=== PATIENT | male | born 1980 | race African-American/Black ===

== ENCOUNTER 2018-09-16 06:40 | Emergency (ER) | payer OTHER ==
[~2018-09-16] VITALS: Ht 180.3 cm; Wt 106.6 kg
[2018-09-16] MEDS ORDERED: IV NORMAL SALINE 1000ML BAG 1,000 ML IV SCH (06:54)
--- NOTE | 2018-09-16 06:58 | PHYS DOC ---
Past Medical History Past Medical History: Diabetes-Type II, Hypotension Smoking: Cigarettes (The patient is a nonsmoker.) Alcohol Use: None Drug Use: None Adult General HPI HPI Patient is a pleasant 38-year-old male who presents to the emergency department for evaluation. He lives in [place], and is a truck driver flatbed, and states about 40 minutes prior to arrival he developed the sudden onset of severe left flank pain, with radiation around towards his anterior left lower abdomen. He has not had any nausea or vomiting. Denies any genital pain or radiation of the pain towards his groin. He has not had any hematuria or dysuria, has not had any fevers or chills. He denies any chest pain or shortness of breath. Has not had any similar symptoms in the past. He states that his pain is described as a sharp achy pain, which will come in paroxysms. There are no alleviating or exacerbating factors to his symptoms. He was given 100 g of fentanyl by EMS without significant relief. Review of Systems Review of Systems Constitutional: Denies fever or chills [] Eyes: Denies change in visual acuity, redness, or eye pain [] HENT: Denies nasal congestion or sore throat [] Respiratory: Denies cough or shortness of breath [] Cardiovascular: The patient denies any shortness of breath, chest pain, palpitations, or orthopnea [] GI: No additional information not addressed in HPI [] : Denies dysuria or hematuria, no genital pain [] Musculoskeletal: Denies back pain or joint pain [] Integument: Denies rash or skin lesions [] Neurologic: Denies headache, focal weakness or sensory changes [] Endocrine: Denies polyuria or polydipsia [] All other systems were reviewed and found to be within normal limits, except as documented in this note. Current Medications Current Medications Current Medications Medications (Trade) Dose Ordered Sig/Lobo Start Time Stop Time Status Last Admin Dose Admin Ketorolac Tromethamine (Toradol 30mg Vial) 30 mg 1X ONCE 09/16/18 07:00 09/16/18 07:02 DC 09/16/18 07:10 30 MG Morphine Sulfate (Morphine Sulfate) 4 mg PRN Q15MIN PRN 09/16/18 07:00 09/17/18 06:59 09/16/18 08:22 4 MG Ondansetron HCl (Zofran) 4 mg 1X ONCE 09/16/18 07:00 09/16/18 07:02 DC 09/16/18 07:10 4 MG Sodium Chloride 1,000 ml @ 1,000 mls/hr Q1H 09/16/18 06:54 09/16/18 07:53 DC 09/16/18 07:09 1,000 MLS/HR Allergies Allergies Allergies Coded Allergies Type Severity Reaction Last Updated Verified No Known Drug Allergies 09/16/18 No Physical Exam Physical Exam PHYSICAL EXAM: CONSTITUTIONAL: Well developed, well nourished HEAD: normocephalic, atraumatic EENT: PERRL, EOMI. Conjunctivae normal color, sclerae non-icteric; moist mucous membranes. NECK: Supple, non-tender; no meningismus. LUNGS: Lungs CTA, breathing even and unlabored. Normal air movement. HEART: Regular rate and rhythm, no murmur CHEST: No deformity; non-tender ABDOMEN: The abdomen is soft, there is tenderness to palpation in the left mid and lower abdomen, without rebound or guarding, the remainder the abdomen is soft and non-tender, no masses or bruits. EXTREM: Normal ROM; no deformity, no calf tenderness. Normal pulses palpable in all extremities. There is no pedal edema. SKIN: No rash; no diaphoresis NEURO: Alert; normal speech and cognition; CN's grossly intact; strength grossly intact without focal deficit. BACK: There is mild left-sided CVA TTP. There is no midline vertebral tenderness to palpation of the thoracic or lumbar spine, there is no paraspinal muscular tenderness to palpation to the back. GENITOURINARY: Normal external genitalia, without any testicular tenderness to palpation. Current Patient Data Vital Signs Vital Signs Date Time Temp Pulse Resp B/P (MAP) Pulse Ox O2 Delivery O2 Flow Rate FiO2 09/16/18 08:15 85 18 127/74 (91) 99 Room Air 09/16/18 06:40 97.5 97.5 Lab Values Laboratory Tests Test 09/16/18 06:51 09/16/18 07:52 White Blood Count 9.2 x10^3/uL (4.0-11.0) Red Blood Count 4.43 x10^6/uL (4.30-5.70) Hemoglobin 13.4 g/dL (13.0-17.5) Hematocrit 40.4 % (39.0-53.0) Mean Corpuscular Volume 91 fL (79-100) Mean Corpuscular Hemoglobin 30 pg (25-35) Mean Corpuscular Hemoglobin Concent 33 g/dL (31-37) Red Cell Distribution Width 13.7 % (11.5-14.5) Platelet Count 180 x10^3/uL (140-400) Neutrophils (%) (Auto) 63 % (31-73) Lymphocytes (%) (Auto) 28 % (24-48) Monocytes (%) (Auto) 7 % (0-9) Eosinophils (%) (Auto) 1 % (0-3) Basophils (%) (Auto) 1 % (0-3) Neutrophils # (Auto) 5.9 x10^3uL (1.8-7.7) Lymphocytes # (Auto) 2.6 x10^3/uL (1.0-4.8) Monocytes # (Auto) 0.6 x10^3/uL (0.0-1.1) Eosinophils # (Auto) 0.1 x10^3/uL (0.0-0.7) Basophils # (Auto) 0.1 x10^3/uL (0.0-0.2) Sodium Level 141 mmol/L (136-145) Potassium Level 3.9 mmol/L (3.5-5.1) Chloride Level 105 mmol/L (98-107) Carbon Dioxide Level 28 mmol/L (21-32) Anion Gap 8 (6-14) Blood Urea Nitrogen 11 mg/dL (8-26) Creatinine 1.1 mg/dL (0.7-1.3) Estimated GFR (Cockcroft-Gault) 90.2 BUN/Creatinine Ratio 10 (6-20) Glucose Level 198 mg/dL (70-99) H Calcium Level 9.5 mg/dL (8.5-10.1) Total Bilirubin 0.3 mg/dL (0.2-1.0) Aspartate Amino Transferase (AST) 17 U/L (15-37) Alanine Aminotransferase (ALT) 32 U/L (16-63) Alkaline Phosphatase 66 U/L (46-116) Total Protein 8.1 g/dL (6.4-8.2) Albumin 3.8 g/dL (3.4-5.0) Albumin/Globulin Ratio 0.9 (1.0-1.7) L Lipase 112 U/L (73-393) Urine Collection Type Void Urine Color Yellow Urine Clarity Cloudy Urine pH 5.5 Urine Specific [employer] >=1.030 Urine Protein 30 mg/dL (NEG-TRACE) Urine Glucose (UA) Negative mg/dL (NEG) Urine Ketones (Stick) Negative mg/dL (NEG) Urine Blood Large (NEG) Urine Nitrite Negative (NEG) Urine Bilirubin Small (NEG) Urine Urobilinogen Dipstick 0.2 mg/dL (0.2 mg/dL) Urine Leukocyte Esterase Negative (NEG) Urine RBC Tntc /HPF (0-2) Urine WBC 5-10 /HPF (0-4) Urine Squamous Epithelial Cells Mod /LPF Urine Bacteria Few /HPF (0-FEW) Urine Mucus Marked /LPF Laboratory Tests 09/16/18 06:51 Laboratory Tests 09/16/18 06:51 EKG EKG [] Radiology/Procedures Radiology/Procedures [PROCEDURE: CT ABDOMEN PELVIS WO CONTRAST CT scan of the abdomen and pelvis without contrast 09/16/2018 Clinical history: left flank pain. TECHNIQUE: Unenhanced, contiguous, 2 mm axial sections were obtained through the abdomen and pelvis. One or more of the following individualized dose reduction techniques were utilized for this study: 1. Automated exposure control. 2. Adjustment of the mA and/or kV according to patient size. 3. Use of iterative reconstruction technique. FINDINGS: Images through the lung bases are within normal limits. The liver, spleen, pancreas, and adrenal glands are within normal limits. No renal calculus is seen. There is no evidence of obstruction of the right collecting system. The left kidney is mildly enlarged. Mild dilatation of the left intrarenal collecting system is seen. Within the proximal left ureter near the left UPJ, a 8 mm ureteral calculus is seen at the L3 level which is causing mild obstruction of the left collecting system. The abdominal aorta tapers normally. The gallbladder is slightly contracted. No free fluid or free air is seen within the abdomen. The appendix is well-visualized and is within normal limits. There is no evidence of bowel obstruction. Images through the pelvis demonstrate the urinary bladder to be slightly contracted. Calcifications are seen within the pelvis consistent with phleboliths. No free fluid is seen. Minimal S-shaped curvature of the thoracolumbar spine is noted. IMPRESSION: 8 mm proximal left ureteral calculus is seen which is causing mild obstruction of the left collecting system.] Course & Med Decision Making Course & Med Decision Making Pertinent Labs and Imaging studies reviewed. (See chart for details) [8:25 AM: The patient's condition remains stable, his pain has resolved at this time. I discussed test results with the patient, the size and proximal nature of this stone, and the likelihood for required intervention to help improve the stone. The patient does not feel he needs to be hospitalized at this time, and would rather follow up with a urologist closer to home in [place] when he returns home. He does have a primary care provider, who he states can help make referrals to appropriate urologist for him. I discussed the importance of close follow-up with the patient, as well as the sedating nature of medication that he received in the emergency department and not to drive for the next several hours until the effects of the medications had worn off. I discussed the importance of return precautions for new or worsening pain, or fevers. Although I'm doubtful the patient has infection in his kidney stone at this time, even small amount of white cells and bacteria he will be treated with antibiotics.] Dragon Disclaimer Dragon Disclaimer This electronic medical record was generated, in whole or in part, using a voice recognition dictation system. Departure Departure Impression: Primary Impression: Kidney stone Disposition: 01 HOME, SELF-CARE Condition: STABLE Patient Instructions: Diet for Kidney Stones, Kidney Stones Additional Instructions: It is important that you follow up with urology for further evaluation and definitive treatment of your kidney stone. Please call the urologist of her choice to help schedule follow-up appointment. Return to medical care for any new or worsening symptoms, development of increasing pain, fevers, vomiting, or any other new, or concerning symptoms. Scripts [ketorolac] No Conflict Check 10 MG PO Q8H PRN for PAIN, #30 Prov: TAMIKA SNYDER MD 09/16/18 Cephalexin (KEFLEX) 500 Mg Capsule 1000 MG PO BID for 7 Days, CAP Prov: TAMIKA SNYDER MD 09/16/18 Tamsulosin Hcl (FLOMAX) 0.4 Mg Cap.er.24h 1 CAP PO DAILY, #30 CAP 0 Refills Prov: TAMIKA SNYDER MD 09/16/18 TAMIKA SNYDER MD Sep 16, 2018 06:58
[2018-09-16] MEDS ORDERED: KETOROLAC 30 MG/ML VIAL. IV ONE (07:00)
[2018-09-16] MEDS ORDERED: ONDANSETRON PF 4 MG/2 ML VIAL. IV ONE (07:00)
[2018-09-16 07:13] LABS: BASO # 0.1 x10^3/uL (0.0-0.2); BASO % 1 % (0-3); EOS # 0.1 x10^3/uL (0.0-0.7); EOS % 1 % (0-3); HEMATOCRIT 40.4 % (39.0-53.0); HEMOGLOBIN 13.4 g/dL (13.0-17.5); LYMPH # 2.6 x10^3/uL (1.0-4.8); LYMPH % 28 % (24-48); MEAN CORPUSCULAR HEMOGLOBIN 30 pg (25-35); MEAN CORPUSCULAR HGB CONC 33 g/dL (31-37); MEAN CORPUSCULAR VOLUME 91 fL (79-100); MONO # 0.6 x10^3/uL (0.0-1.1); MONO % 7 % (0-9); NEUT # 5.9 x10^3uL (1.8-7.7); NEUT % 63 % (31-73); PLATELET COUNT 180 x10^3/uL (140-400); RED BLOOD COUNT 4.43 x10^6/uL (4.30-5.70); RED CELL DISTRIBUTION WIDTH 13.7 % (11.5-14.5); WHITE BLOOD COUNT 9.2 x10^3/uL (4.0-11.0)
[2018-09-16 07:27] LABS: CALCIUM 9.5 mg/dL (8.5-10.1); CREATININE 1.1 mg/dL (0.7-1.3); GFR 90.2; POTASSIUM 3.9 mmol/L (3.5-5.1)
[2018-09-16 07:34] LABS: ALBUMIN 3.8 g/dL (3.4-5.0); ALBUMIN/GLOBULIN RATIO 0.9 (1.0-1.7); TOTAL BILIRUBIN 0.3 mg/dL (0.2-1.0); TOTAL PROTEIN 8.1 g/dL (6.4-8.2)
--- NOTE | 2018-09-16 07:38 | RAD ---
CT scan of the abdomen and pelvis without contrast 09/16/2018 Clinical history: left flank pain. TECHNIQUE: Unenhanced, contiguous, 2 mm axial sections were obtained through the abdomen and pelvis. One or more of the following individualized dose reduction techniques were utilized for this study: 1. Automated exposure control. 2. Adjustment of the mA and/or kV according to patient size. 3. Use of iterative reconstruction technique. FINDINGS: Images through the lung bases are within normal limits. The liver, spleen, pancreas, and adrenal glands are within normal limits. No renal calculus is seen. There is no evidence of obstruction of the right collecting system. The left kidney is mildly enlarged. Mild dilatation of the left intrarenal collecting system is seen. Within the proximal left ureter near the left UPJ, a 8 mm ureteral calculus is seen at the L3 level which is causing mild obstruction of the left collecting system. The abdominal aorta tapers normally. The gallbladder is slightly contracted. No free fluid or free air is seen within the abdomen. The appendix is well-visualized and is within normal limits. There is no evidence of bowel obstruction. Images through the pelvis demonstrate the urinary bladder to be slightly contracted. Calcifications are seen within the pelvis consistent with phleboliths. No free fluid is seen. Minimal S-shaped curvature of the thoracolumbar spine is noted. IMPRESSION: 8 mm proximal left ureteral calculus is seen which is causing mild obstruction of the left collecting system. Electronically signed by: Devin Welsh MD (09/16/2018 7:33 AM) [id number]
[2018-09-16] MEDS: MORPHINE SULFATE 4 MG/ML VIAL. IV/SQ PRN ×2 (07:43→08:22)
[2018-09-16 07:59] LABS: BILIRUBIN,URINE SMALL (NEG); CLARITY,URINE CLOUDY; NITRITE,URINE NEGATIVE (NEG); PH,URINE 5.5; PROTEIN,URINE 30 mg/dL (NEG-TRACE); UROBILINOGEN,URINE 0.2 mg/dL (0.2 mg/dL)
[2018-09-16 08:17] LABS: COLOR,URINE YELLOW
[2018-09-16 08:18] LABS: RBC,URINE TNTC /HPF (0-2); SQUAMOUS EPITHELIAL CELL,UR MOD /LPF
[2018-09-16 08:19] LABS: BACTERIA,URINE FEW /HPF (0-FEW)
[2018-09-16] MEDS ORDERED: TAMS0.4C97 PO (08:32)
[2018-09-16] MEDS ORDERED: CEPH-264 PO (08:32)
[2018-09-16] MEDS ORDERED: ketorolac PO (08:32)
[2018-09-16 08:40] VITALS: BP 124/78
== END 2018-09-16 09:09 | disposition home or self-care (01) ==
LOC: ER 06:40
DX: N20.2 Calculus of kidney with calculus of ureter (principal); E11.9 Type 2 diabetes mellitus without complications
CPT/HCPCS: 36415; 74176; 80053; 81001; 83690; 85025; 87086; 96374; 96375; 96376; 99284; J1885; J2270; J2405; J7030